=== PATIENT | male | born 1945 | race Caucasian/White ===

== ENCOUNTER 2018-03-29 15:05 | Emergency (ER) | payer OTHER ==
[~2018-03-29] VITALS: Ht 165.1 cm; Wt 77.3 kg
[~2018-03-29 15:05] MED LIST: LIPITOR10 MG PO; NEXIUM20 MG PO
[2018-03-29 16:41] LABS: INTER. NORMALIZED RATIO 1.2
[2018-03-29 16:43] LABS: CHLORIDE 101 mEq/L (99-109); MAGNESIUM 1.7 mg/dL (1.3-2.7); POTASSIUM 3.8 mEq/L (3.7-5.4); SODIUM 134 mEq/L (136-147)
[2018-03-29 16:44] LABS: GLUCOSE 133 mg/dL (70-99); PTT 29.7 SEC (25-37)
[2018-03-29 16:48] LABS: GFR ESTIMATE (CALCULATED) > 59 mL/min/ (58.99-99999)
[2018-03-29 16:49] LABS: HEMATOCRIT 32.3 % (38.0-50.0); HEMOGLOBIN 11.1 G/DL (12.5-16.6); MCH 38.1 PG (29.0-34.0); MCHC 34.4 G/DL (30.0-36.0); NRBC (%) 0.5 /100 WBC (0-0); RBC DIS.WIDTH-CV 15.3 % (11.8-14.6); RBC DIS.WIDTH-SD 62.6 % (39-53); RED BLOOD COUNT 2.91 M/uL (4.00-5.50); UREA NITROGEN (BUN) 29 mg/dL (9-23); WHITE BLOOD COUNT 4.3 K/uL (4.1-10.2)
[2018-03-29 16:54] LABS: TROP-I INTERPRETATION NEGATIVE; TROPONIN-I < 0.01 ng/mL (0.0-0.30)
[2018-03-29 17:22] LABS: ANISOCYTOSIS 3+; BAND NEUTROPHILS 43.5 % (0-8.0); BASOPHILS 0.9 %; EOSINOPHIL ABS CT 0; LYMPHOCYTES 2.6 % (15.0-45.0); MACROCYTES 2+; MONOCYTES 3.5 % (0-9.0); PLAT.SUFFICIENCY ADEQUATE; PLATELET COUNT 253 K/uL (156-360); SCHISTOCYTES 1+; SEG.NEUTROPHILS 49.5 % (46.0-76.0)
[2018-03-29 20:45] LABS: TROP-I INTERPRETATION NEGATIVE; TROPONIN-I 0.01 ng/mL (0.0-0.30)
[2018-03-29 21:57] VITALS: BP 110/64
== END 2018-03-29 22:00 | disposition home or self-care (01) ==
LOC: EME 15:05
PROVIDERS: Emergency Medicine
DX: R19.7 Diarrhea, unspecified (principal); R07.89 Other chest pain; I25.10 Atherosclerotic heart disease of native coronary artery without angina pectoris; N40.0 Benign prostatic hyperplasia without lower urinary tract symptoms; Z90.49 Acquired absence of other specified parts of digestive tract; K57.50 Diverticulosis of both small and large intestine without perforation or abscess without bleeding; I49.1 Atrial premature depolarization; D46.9 Myelodysplastic syndrome, unspecified; Z92.21 Personal history of antineoplastic chemotherapy
CPT/HCPCS: 71045; 74177; 80048; 83735; 84484; 85025; 85610; 85730; 87493; 93005; 99281; 99285